=== PATIENT | female | born 2005 | race African-American/Black ===

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

== ENCOUNTER 2024-09-16 16:04 | Inpatient (IN) | payer MEDICAID, OTHER ==
[~2024-09-16] VITALS: Ht 154.9 cm; Wt 58.2 kg
[~2024-09-16 16:04] MED LIST: AMOX500T86 PO
[2024-09-16] MEDS: SODIUM CHLORIDE 0.9% 1,000 ML IV ONE (17:15)
[2024-09-16 17:18] VITALS: PULSE 68; RESP 18; O2SAT 98
[2024-09-16 17:54] LABS: Basophils # (auto) 0 10 ^3/uL (0-0.2); Basophils % (auto) 0.9 % (0.0-2.0); Eosinophils # (auto) 0.1 10 ^3/uL (0-0.8); Eosinophils % (auto) 1.3 % (0.0-7.0); Hemoglobin 11.7 g/dL (12.2-16.2); Lymphocytes # (auto) 1.4 10 ^3/uL (0.4-5.4); Lymphocytes % (auto) 35.1 % (10.0-50.0); Mean Corpuscular Hemoglobin 24.2 pg (28.0-32.0); Mean Corpuscular Hgb Conc. 31.6 g/dL (32.0-36.0); Mean Corpuscular Volume 76.6 fL (80.0-100.0); Monocytes # (auto) 0.4 10 ^3/uL (0-1.3); Monocytes % (auto) 10.7 % (0.0-12.0); Neutrophils # (auto) 2.1 10 ^3/uL (1.6-8.6); Platelet Count (auto) 338 10^3/uL (140-450); Red Blood Cells 4.82 10^6/uL (4.0-5.20); Red Cell Distribution Width 17.4 % (11.8-14.3); White Blood Cell 4.1 10^3/uL (4.4-10.8)
[2024-09-16 18:11] LABS: Alanine Aminotransferase 15 U/L (7-40); Alkaline Phosphatase 56 U/L (46-116); Anion Gap 10 (5-15); Aspartate Aminotransferase 23 U/L (13-40); BUN/Creatinine Ratio 7.2 (10.0-20.0); Blood Urea Nitrogen 5 mg/dL (9-23); Calcium 9.9 mg/dL (8.7-10.4); Carbon Dioxide 24 mmol/L (20-31); Chloride 105 mmol/L (98-107); Glucose 81 mg/dL (74-106); Lipase 26 U/L (12-53); Magnesium 1.9 mg/dL (1.6-2.6); Potassium 4.4 mmol/L (3.5-5.1); Sodium 139 mmol/L (136-145)
[2024-09-16 18:12] LABS: Albumin 4.6 g/dL (3.2-4.8); Bilirubin, Total 0.4 mg/dL (0.2-1.0); Total Protein 7.4 g/dL (5.7-8.2)
[2024-09-16] MEDS ORDERED: HYDROcodone-ACET 5/325MG TAB PO PRN (21:30)
[2024-09-16] MEDS ORDERED: NITROGLYCERIN 0.4 MG SL TAB SL PRN (21:30)
[2024-09-16] MEDS ORDERED: ACETAMINOPHEN 325 MG TAB PO PRN (21:30)
[2024-09-16] MEDS ORDERED: MORPHINE SULFATE INJ 2 MG/ml SYRG IV PRN (21:30)
[2024-09-16] MEDS: SODIUM CHLORIDE 0.9% 1,000 ML IV SCH (22:13)
[2024-09-16 23:34] VITALS: PULSE 75; RESP 20; O2SAT 100
[2024-09-17] VITALS (10 sets, daily range): BP systolic 102–114; BP diastolic 54–78; PULSE 52–79; RESP 16–20; TEMP 97.4–97.9; O2SAT 93–100
[2024-09-17] MEDS: CYANOCOBALAMIN (B-12) 1000 MCG/1 ML VIAL IM ONE (01:09)
[2024-09-17] MEDS: ERGOCALCIFEROL 50,000 UNIT(1.25MG) CAP PO SCH (01:10)
[2024-09-17] MEDS: MECLIZINE HCL 25 MG TAB PO ONE (01:10)
[2024-09-17 05:32] LABS: Basophils # (auto) 0 10 ^3/uL (0-0.2); Basophils % (auto) 0.6 % (0.0-2.0); Eosinophils # (auto) 0.1 10 ^3/uL (0-0.8); Eosinophils % (auto) 2.7 % (0.0-7.0); Lymphocytes # (auto) 2.1 10 ^3/uL (0.4-5.4); Lymphocytes % (auto) 39.1 % (10.0-50.0); Mean Corpuscular Hgb Conc. 31.6 g/dL (32.0-36.0); Mean Corpuscular Volume 76.2 fL (80.0-100.0); Monocytes # (auto) 0.5 10 ^3/uL (0-1.3); Neutrophils # (auto) 2.6 10 ^3/uL (1.6-8.6); Neutrophils % (auto) 47.6 % (37.0-80.0); Platelet Count (auto) 354 10^3/uL (140-450); Red Blood Cells 4.59 10^6/uL (4.0-5.20); Red Cell Distribution Width 17.5 % (11.8-14.3); White Blood Cell 5.5 10^3/uL (4.4-10.8)
[2024-09-17 06:03] LABS: Alanine Aminotransferase 13 U/L (7-40); Albumin 3.6 g/dL (3.2-4.8); Alkaline Phosphatase 51 U/L (46-116); Anion Gap 7 (5-15); Aspartate Aminotransferase 17 U/L (13-40); BUN/Creatinine Ratio 9.1 (10.0-20.0); Bilirubin, Total 0.3 mg/dL (0.2-1.0); Blood Urea Nitrogen 7 mg/dL (9-23); Calcium 9.2 mg/dL (8.7-10.4); Carbon Dioxide 25 mmol/L (20-31); Chloride 111 mmol/L (98-107); Glucose 84 mg/dL (74-106); Sodium 143 mmol/L (136-145); Total Protein 6.2 g/dL (5.7-8.2)
[2024-09-17 07:02] LABS: Urine Bacteria None Seen /hpf (None Seen)
[2024-09-17 07:17] LABS: Urine Blood Negative /uL (Negative); Urine Clarity Clear (Clear); Urine Color Colorless (Yellow); Urine Protein, UAD Negative (Negative); Urine Specific Gravity 1.016 (1.001-1.035); Urine Urobilinogen Normal (Negative); Urine WBC 9 /hpf (0 - 5); Urine pH 7.5 (5.0-9.0)
[2024-09-17 07:23] LABS: Amphetamine Screen, Urine Neg (NEGATIVE); Benzodiazephine Screen, Urine Neg (NEGATIVE)
[2024-09-17 07:24] LABS: Barbiturate Scree,Urine Neg (NEGATIVE); Cannabinoid Screen, Urine Neg (NEGATIVE); Cocaine Screen, Urine Neg (NEGATIVE); Opiate Scree,Urine Neg (NEGATIVE); Phencyclidine Screen, Urine Neg (NEGATIVE)
[2024-09-17] MEDS: NITROFURANTOIN 100 mg CAP PO ONE (16:48)
[2024-09-17] MEDS: NITROFURANTOIN 100 mg CAP PO SCH (20:50)
[2024-09-17] MEDS ORDERED: LORazepam 2MG/ML-1ML VIAL IV PRN (23:00)
[2024-09-18] VITALS (11 sets, daily range): BP systolic 95–127; BP diastolic 49–89; PULSE 62–90; RESP 17–20; TEMP 97.7–98.4; O2SAT 92–100
[2024-09-18 07:18] LABS: Basophils # (auto) 0 10 ^3/uL (0-0.2); Eosinophils # (auto) 0.1 10 ^3/uL (0-0.8); Eosinophils % (auto) 2.8 % (0.0-7.0); Mean Corpuscular Hemoglobin 24.5 pg (28.0-32.0); Monocytes # (auto) 0.5 10 ^3/uL (0-1.3); Neutrophils # (auto) 1.9 10 ^3/uL (1.6-8.6); Neutrophils % (auto) 42.3 % (37.0-80.0); Nucleated Red Blood Cells % 0.1 %
[2024-09-18 07:20] LABS: Chloride 105 mmol/L (98-107); Potassium 3.8 mmol/L (3.5-5.1); Sodium 139 mmol/L (136-145)
[2024-09-18 07:21] LABS: Anion Gap 11 (5-15); Basophils % (auto) 0.7 % (0.0-2.0); Carbon Dioxide 23 mmol/L (20-31); Hemoglobin 11.2 g/dL (12.2-16.2); Lymphocytes % (auto) 43.6 % (10.0-50.0); Mean Corpuscular Hgb Conc. 32.1 g/dL (32.0-36.0); Mean Corpuscular Volume 76.3 fL (80.0-100.0); Monocytes % (auto) 10.6 % (0.0-12.0); Platelet Count (auto) 352 10^3/uL (140-450); Red Blood Cells 4.58 10^6/uL (4.0-5.20); Red Cell Distribution Width 17.5 % (11.8-14.3); White Blood Cell 4.5 10^3/uL (4.4-10.8)
[2024-09-18 07:22] LABS: Calcium 9.4 mg/dL (8.7-10.4)
[2024-09-18 07:27] LABS: BUN/Creatinine Ratio 6.9 (10.0-20.0); Blood Urea Nitrogen 5 mg/dL (9-23); Glucose 77 mg/dL (74-106)
[2024-09-18 10:15] LABS: % Iron Saturation 5.9 % (15-50)
[2024-09-18 10:37] LABS: Ferritin 3.8 ng/mL (10-291); Folate (Folic Acid) 16.9 ng/mL (>5.38)
[2024-09-18] MEDS: FERROUS SULFATE 325mg EC TAB PO ONE (13:00)
[2024-09-18] MEDS: FERROUS SULFATE 325mg EC TAB PO SCH (17:00)
[2024-09-18] MEDS: MECLIZINE HCL 25 MG TAB PO PRN (22:15)
[2024-09-19] VITALS (8 sets, daily range): BP systolic 96–114; BP diastolic 47–71; PULSE 58–77; RESP 17–20; TEMP 97.5–97.9; O2SAT 98–100
[2024-09-19 07:10] LABS: Basophils # (auto) 0 10 ^3/uL (0-0.2); Basophils % (auto) 0.6 % (0.0-2.0); Eosinophils # (auto) 0.1 10 ^3/uL (0-0.8); Eosinophils % (auto) 2.2 % (0.0-7.0); Hematocrit 34.4 % (36.0-46.0); Hemoglobin 10.9 g/dL (12.2-16.2); Lymphocytes # (auto) 1.6 10 ^3/uL (0.4-5.4); Mean Corpuscular Hemoglobin 24.3 pg (28.0-32.0); Mean Corpuscular Hgb Conc. 31.7 g/dL (32.0-36.0); Mean Corpuscular Volume 76.4 fL (80.0-100.0); Monocytes # (auto) 0.5 10 ^3/uL (0-1.3); Monocytes % (auto) 10.9 % (0.0-12.0); Neutrophils # (auto) 2.1 10 ^3/uL (1.6-8.6); Neutrophils % (auto) 49.3 % (37.0-80.0); Nucleated Red Blood Cells % 0.2 %; Platelet Count (auto) 342 10^3/uL (140-450); Red Cell Distribution Width 17.4 % (11.8-14.3); White Blood Cell 4.3 10^3/uL (4.4-10.8)
[2024-09-19 07:22] LABS: Anion Gap 8 (5-15); Carbon Dioxide 24 mmol/L (20-31); Chloride 109 mmol/L (98-107); Potassium 4.1 mmol/L (3.5-5.1); Sodium 141 mmol/L (136-145)
[2024-09-19 07:23] LABS: Calcium 9.3 mg/dL (8.7-10.4)
[2024-09-19 07:28] LABS: BUN/Creatinine Ratio 9.9 (10.0-20.0); Blood Urea Nitrogen 7 mg/dL (9-23); Glucose 88 mg/dL (74-106)
[2024-09-20 01:00] VITALS: BP 91/40; PULSE 67; RESP 17; TEMP 97.4; O2SAT 98
[2024-09-20 05:00] VITALS: BP_SYST 102; BP_SYST 110; BP_SYST 112; BP_DIAS 41; BP_DIAS 71; BP_DIAS 74; PULSE 66; RESP 16; TEMP 98.6; O2SAT 99
[2024-09-20 08:00] VITALS: PULSE 61
[2024-09-20 09:56] VITALS: BP 107/52; PULSE 58; RESP 15; TEMP 97.9; O2SAT 99
[2024-09-20] MEDS ORDERED: MECL25CH20 PO (13:31)
[2024-09-20 13:45] VITALS: BP 107/52; PULSE 58; RESP 15; TEMP 97.9; O2SAT 99
[2024-09-20 14:14] LABS: Basophils # (auto) 0 10 ^3/uL (0-0.2); Basophils % (auto) 0.7 % (0.0-2.0); Eosinophils # (auto) 0.1 10 ^3/uL (0-0.8); Monocytes # (auto) 0.4 10 ^3/uL (0-1.3); Neutrophils # (auto) 2.2 10 ^3/uL (1.6-8.6); Nucleated Red Blood Cells % 0.1 %
[2024-09-20 14:19] LABS: Eosinophils % (auto) 1.3 % (0.0-7.0); Hematocrit 36.7 % (36.0-46.0); Lymphocytes # (auto) 1.1 10 ^3/uL (0.4-5.4); Lymphocytes % (auto) 29.3 % (10.0-50.0); Mean Corpuscular Hemoglobin 24.8 pg (28.0-32.0); Mean Corpuscular Hgb Conc. 32.6 g/dL (32.0-36.0); Mean Corpuscular Volume 76.1 fL (80.0-100.0); Monocytes % (auto) 10.1 % (0.0-12.0); Neutrophils % (auto) 58.6 % (37.0-80.0); Platelet Count (auto) 352 10^3/uL (140-450); Red Blood Cells 4.83 10^6/uL (4.0-5.20); Red Cell Distribution Width 17.6 % (11.8-14.3); White Blood Cell 3.8 10^3/uL (4.4-10.8)
[2024-09-20 14:24] LABS: Chloride 106 mmol/L (98-107); Potassium 3.9 mmol/L (3.5-5.1); Sodium 139 mmol/L (136-145)
[2024-09-20 14:25] LABS: Anion Gap 5 (5-15); Calcium 9.8 mg/dL (8.7-10.4); Carbon Dioxide 28 mmol/L (20-31)
[2024-09-20 14:30] LABS: BUN/Creatinine Ratio 7.5 (10.0-20.0); Blood Urea Nitrogen 5 mg/dL (9-23); Glucose 83 mg/dL (74-106)
[2024-09-20 14:50] VITALS: BP 125/73; PULSE 72; RESP 15; TEMP 97.6; O2SAT 100
[2024-09-20] MEDS ORDERED: NITR-87 PO (14:57)
[2024-09-20] MEDS ORDERED: NITR50CA24 PO (15:02)
[2024-09-20] MEDS ORDERED: NITR-52 PO (15:23)
== END 2024-09-20 16:40 | disposition home or self-care (01) | DRG 641 ==
LOC: ER 16:04 → TELE 21:29 → TELE-WESTW 23:56
PROVIDERS: ADMIT Internal Medicine Geriatric Medicine; ATTEND Internal Medicine Geriatric Medicine
DX: E86.0 Dehydration (principal); N30.00 Acute cystitis without hematuria; F19.10 Other psychoactive substance abuse, uncomplicated; E53.8 Deficiency of other specified B group vitamins; F12.10 Cannabis abuse, uncomplicated; F32.A Depression, unspecified; D50.9 Iron deficiency anemia, unspecified; F41.9 Anxiety disorder, unspecified; I95.1 Orthostatic hypotension; E86.1 Hypovolemia; E55.9 Vitamin D deficiency, unspecified; H81.13 Benign paroxysmal vertigo, bilateral
CPT/HCPCS: 36415; 70450; 70551; 71045; 80048; 80053; 80307; 81001; 82306; 82607; 82728; 82746; 82962; 83010; 83036; 83540; 83550; 83605; 83615; 83690; 83735; 83880; 84443; 84484; 84702; 85025; 85045; 87086; 93005; 93306; 93886; 95819; 97116; 97163; 97530; G0378